=== PATIENT | male | born 2000 | race African-American/Black ===

== ENCOUNTER 2020-02-28 22:26 | Emergency (ER) | payer OTHER ==
[~2020-02-28] VITALS: Ht 188 cm; Wt 73.5 kg
[2020-02-28 22:40] VITALS: BP 124/76; Ht 188 cm; Wt 73.5 kg
[2020-02-29 01:07] LABS: UA SPECIFIC GRAVITY 1.025 (1.005-1.035); microscopic required? YES; urine erythrocyte NEGATIVE (NEGATIVE)
== END 2020-02-28 23:22 | disposition home or self-care (01) ==
LOC: ED 22:26
PROVIDERS: Emergency Medicine
DX: A64 Unspecified sexually transmitted disease (principal); N34.2 Other urethritis; Z88.2 Allergy status to sulfonamides
CPT/HCPCS: 87491; 87591; J0696

== ENCOUNTER 2020-04-09 01:39 | Emergency (ER) | payer OTHER ==
[~2020-04-09] VITALS: Ht 190.5 cm; Wt 73.2 kg
[2020-04-09 02:01] VITALS: Ht 190.5 cm; Wt 73.2 kg
[2020-04-09 02:44] VITALS: BP 137/87
== END 2020-04-09 02:44 | disposition home or self-care (01) ==
LOC: ED 01:39
DX: N34.2 Other urethritis (principal); Z88.2 Allergy status to sulfonamides
CPT/HCPCS: 87491; 87591; J0696